=== PATIENT | female | born 1970 | race Caucasian/White ===

== ENCOUNTER 2017-03-28 20:11 | Emergency (ER) | payer BC ==
[~2017-03-28 20:11] MED LIST: ADDERALL20 MG PO; ADDERALL30 MG PO; ANTIBIOTIC; B121000P IM; CIMZIA SC; COQ10100 MG OR; CYANO1000T PO; DENIES MEDICATIONS; DIL2TAB PO; ENTOCORT3 PO; HUMIRA SC; IMU PO; MULTIPLE VIT PO; MULTIVIT/MIN PO; NEXIUM40 PO; NICODERM C14 MG/24 H TOP; NYS500UDL PO; PR25 PO; REMICADE IV; VITAMIN B-121000 MC1 PO; VITAMIN C PO; VITAMIN C100 M1 PO; VITAMIN C100 MG PO; VITAMIN D31000 UNIT PO; VITC500 PO; VITE PO; XYLOCAINE VISCOUS; [UNRECOGNIZED DRUG - CODE] PO; [UNRECOGNIZED DRUG - OTHER] PO
[2017-03-28 20:58] LABS: ASCORBIC ACID (UR NOT ORDER) NEG (NEG); BILIRUBIN, URINE NEGATIVE (NEG); ER URINALYSIS TAT 0 Hrs 11 Mins; KETONE, URINE NEGATIVE (NEG); LEUKOCYTE ESTERASE(NOT OR MOD (NEG); NITRITE (URINE) NEG (NEG); WBC (NOT ORDERED) (RFLEX) 13 (0-5)
[2017-03-28 21:06] LABS: BASOPHILS 0.3 %; BASOPHILS ABSOLUTE 0.02 10/3/uL (0.0-0.16); EOSINOPHILS 4.7 %; EOSINOPHILS ABSOLUTE 0.37 10/3/uL (0.0-0.53); HEMATOCRIT 42.1 % (36.0-48.0); HEMOGLOBIN 14.2 g/dL (12.0-16.0); IMMATURE GRANULOCYTES 0.6 %; IMMATURE GRANULOCYTES ABSOLUTE 0.05 10/3/uL (0.0-0.11); LYMPHOCYTES ABSOLUTE 2.13 10/3/uL (0.67-4.30); MANUAL DIFF NO %; MEAN CORPUS HGB CONC 33.7 g/dL (32.0-36.0); MEAN CORPUSCULAR HEMOGLOB 30.7 pg (26.0-34.0); MEAN CORPUSCULAR VOLUME 90.9 fL (80-100); MEAN PLATELET VOLUME 9.3 fL (9.2-13.0); MONOCYTES 5.8 %; MONOCYTES ABSOLUTE 0.46 10/3/uL (0.21-1.20); NEUTROPHILS 61.6 %; NEUTROPHILS ABSOLUTE 4.85 10/3/uL (2.02-8.40); PLATELET COUNT 261 10/3/uL (150-400); RBC DISTRIBUTION WIDTH 13.3 % (12.0-16.0); RED CELL COUNT 4.63 10/6/uL (4.0-5.6); WHITE BLOOD CELLS 7.9 10/3/uL (4.5-10.5)
[2017-03-28 21:26] LABS: ALBUMIN 3.5 G/DL (3.5-5.0); ALKALINE PHOSPHATASE 104 U/L (45-117); BUN (BLOOD UREA NITROGEN) 15 MG/DL (6-23); CALCIUM, SERUM 8.6 MG/DL (8.5-10.4); CHLORIDE, SERUM 102 MMOL/L (96-112); CREATININE 1.01 MG/DL (0.55-1.02); GFR AFRICAN AMERICAN 77 ML/MIN (>=60); GFR NON AFRICAN AMERICAN 66 ML/MIN (>=60); GLOBULIN 3.4 G/DL (2.5-4.1); SGPT(ALT) 58 U/L (5-65); SODIUM, SERUM 141 MMOL/L (135-148); TOTAL BILIRUBIN 0.5 MG/DL (0-1.2); TOTAL PROTEIN 6.9 G/DL (6.0-8.5)
[2017-03-28 21:28] LABS: CO2 (CARBON DIOXIDE) 33 MMOL/L (24-34); GLUCOSE, SERUM 123 MG/DL (60-99); POTASSIUM, SERUM 4.2 MMOL/L (3.5-5.3); SGOT(AST) 33 U/L (5-40)
[2017-04-16] MEDS ORDERED: M-CLEAR WC PO (15:45)
[2017-04-16] MEDS ORDERED: P20 PO (15:46)
[2017-04-16] MEDS ORDERED: KLONO5 PO (15:47)
[2017-04-16] MEDS ORDERED: BUSPAR5 PO (15:47)
[2017-04-16] MEDS ORDERED: DIL2TAB PO (15:48)
[2017-04-16] MEDS ORDERED: LOM PO (15:48)
[2017-04-16] MEDS ORDERED: ADDERALL20 MG PO (15:48)
[2017-04-16] MEDS ORDERED: CENTRUM PO (15:49)
[2017-04-16] MEDS ORDERED: PR25 PO (15:49)
[2017-04-16] MEDS ORDERED: HALF81 PO (15:49)
[2017-04-16] MEDS ORDERED: B121000P IM (15:49)
[2017-04-16] MEDS ORDERED: B12250T PO (15:51)
[2017-04-16] MEDS ORDERED: VITC500 PO (15:51)
[2017-04-16] MEDS ORDERED: VITAMIN D1000 UNI1 PO (15:51)
[2017-04-16] MEDS ORDERED: PROAIR HFA PO (15:54)
[2017-04-20] MEDS ORDERED: LEXAPRO10 PO (12:16)
[2017-04-20] MEDS ORDERED: FLONASE NAS (12:16)
[2017-04-20] MEDS ORDERED: PROTONIX PO (12:18)
== END 2017-03-28 22:47 | disposition home or self-care (01) ==
LOC: ER 20:11
PROVIDERS: Nurse Practitioner Acute Care
DX: R19.7 Diarrhea, unspecified (principal); F17.200 Nicotine dependence, unspecified, uncomplicated; Z88.8 Allergy status to other drugs, medicaments and biological substances; Z79.899 Other long term (current) drug therapy
CPT/HCPCS: 80053; 81001; 83690; 85025; 87086; 87493; 87493-59; 96374; 99284; J1170; J2405